=== PATIENT | male | born 1990 | race Caucasian/White ===

== ENCOUNTER 2023-10-28 10:52 | Emergency (ER) | payer BC ==
[2023-10-28] MEDS ORDERED: Naloxone 0.4 MG/ML SDV IVPUSH PRN (12:02)
[2023-10-28] MEDS: Ondansetron 4 MG/2 ML SDV IVPUSH ONE (12:18)
[2023-10-28] MEDS: HYDROmorphone 0.5 MG/0.5 ML Syringe IVPUSH ONE (12:18)
[2023-10-28] MEDS: Pantoprazole 40 MG Vial IV ONE (12:19)
[2023-10-28 12:21] LABS: BASOPHILS ABSOLUTE AUTO 0.04 K/uL (0.00-0.10); BASOPHILS PERCENT AUTO 0.4 % (0.1-1.3); EOSINOPHILS ABSOLUTE AUTO 0.04 K/uL (0.00-0.40); EOSINOPHILS PERCENT AUTO 0.4 % (0.0-5.4); HEMATOCRIT 49.2 % (38.4-49.7); HEMOGLOBIN 17.6 g/dL (12.9-16.9); IMMATURE GRAN ABSOLUTE AUTO 0.03 K/uL (0.00-0.23); IMMATURE GRAN PERCENT AUTO 0.3 % (0.0-0.7); LYMPHOCYTES ABSOLUTE AUTO 1.03 K/uL (0.8-3.3); LYMPHOCYTES PERCENT AUTO 10.2 % (11.4-47.7); MEAN CORPUSCULAR HEMOGLOBIN 30.2 pg (31.6-35.5); MEAN CORPUSCULAR HGB CONC 35.8 g/dL (31.6-35.5); MEAN CORPUSCULAR VOLUME 84.5 fL (81.4-99.0); MONOCYTES ABSOLUTE AUTO 0.41 K/uL (0.20-0.90); NEUTROPHILS ABSOLUTE AUTO 8.58 K/uL (1.0-7.6); NEUTROPHILS PERCENT AUTO 84.7 % (40.0-78.1); PLATELET COUNT,PLT 162 K/uL (130-375); RED BLOOD CELL COUNT 5.82 M/uL (4.14-5.76); WHITE BLOOD CELL COUNT,WBC 10.1 K/uL (3.2-11.0)
[2023-10-28 12:37] LABS: A/G RATIO 1.1 (1.2-2.2); ALANINE AMINOTRANSFERASE,ALT 16 U/L (12-78); ALBUMIN 4.8 g/dL (3.4-5.0); ALKALINE PHOSPHATASE 73 U/L (46-116); ASPARTATE AMNIOTRANSFERASE,AST 23 U/L (15-37); BILIRUBIN TOTAL 0.8 mg/dL (0.2-1.0); BLOOD UREA NITROGEN,BUN 12 mg/dL (7-18); CALCIUM 9.2 mg/dL (8.5-10.1); CARBON DIOXIDE,CO2 27 mmol/L (21-32); CHLORIDE,CL 99 mmol/L (100-108); CREATININE 0.8 mg/dL (0.8-1.3); EST CRCL DRUG DOSING (CG) 149.84 mL/min; ESTIMATED GFR 118 mL/min (>60); GLUCOSE RANDOM 112 mg/dL (74-106); POTASSIUM,K 3.8 mmol/L (3.6-5.2); PROTEIN TOTAL,TP 9.1 g/dL (6.4-8.2); SODIUM,NA 138 mmol/L (140-148)
[2023-10-28 12:38] LABS: ANION GAP 15.8 mmol/L (5.0-14.0); C-REACTIVE PROTEIN < 0.50 mg/dL (<0.50)
[2023-10-28] MEDS: Sodium Chloride 0.9% 1,000 ML IV SCH (12:54)
[2023-10-28 13:06] LABS: CORONAVIRUS COVID-19 NAA NEGATIVE (NEGATIVE); INFLUENZA A NAA NEGATIVE (NEGATIVE); INFLUENZA B NAA NEGATIVE (NEGATIVE); RESPIRATORY SYNCYTIAL VIR NAA NEGATIVE (NEGATIVE)
[2023-10-28 13:15] LABS: APPEARANCE,URINE CLEAR (CLEAR); BILIRUBIN,URINE NEGATIVE (NEGATIVE); COLOR,URINE YELLOW (YELLOW); GLUCOSE,URINE NEGATIVE (NEGATIVE); KETONES,URINE 40 mg/dL (NEGATIVE); LEUKOCYTE ESTERASE,URINE NEGATIVE (NEGATIVE); NITRITE,URINE NEGATIVE (NEGATIVE); OCCULT BLOOD,URINE TRACE-INTACT (NEGATIVE); PH,URINE 5.5 (5.0-8.0); PROTEIN,URINE NEGATIVE (NEGATIVE); UROBILINOGEN,URINE 0.2 EU/dL (0.2-1.0)
[2023-10-28] MEDS: Sodium Chloride 0.9% 10 ML Syringe FLUSH ONE (13:20)
[2023-10-28] MEDS: Iopamidol 612 MG/ML 100 ML Bottle IV ONE (13:20)
[2023-10-28] MEDS: Sodium Chloride 0.9% 100 ML IV ONE (13:20)
[2023-10-28 13:26] LABS: AMORPHOUS SEDIMENT,URINE NOT SEEN; BACTERIA,URINE NOT SEEN; EPITHELIAL CELLS,URINE NOT SEEN; MUCUS,URINE NOT SEEN; RBC,URINE 0-5 (0-5); WBC,URINE 0-5 (0-5)
[2023-10-28] MEDS: LORazepam 2 MG/ML SDV IVPUSH ONE (14:30)
== END 2023-10-28 14:58 | disposition home or self-care (01) ==
LOC: JP.ED 10:52
DX: M54.50 Low back pain, unspecified (principal); Z87.891 Personal history of nicotine dependence
CPT/HCPCS: 0241U; 36415; 74177; 80053; 81001; 82150; 83605; 83690; 85025; 86140; 96361; 96374; 96375; 99284; C9113; J1170; J2060; J2405; J3490; J7030; Q9967